=== PATIENT | female | born 1975 | race Caucasian/White ===

== ENCOUNTER 2016-10-13 14:13 | Emergency (ER) | payer OTHER ==
--- NOTE | 2016-10-13 17:30 | DIAGNOSTIC IMAGING REPORT ---
PROCEDURE: ABDOMEN/PELVIS WITH CONTRAST CLINICAL INDICATION: ABDOMINAL PAIN TECHNIQUE: 125 ml of Isovue 300 were injected intravenously and axial images were obtained of the abdomen and pelvis with sagittal and coronal reformations. COMPARISON: None. FINDINGS: ABDOMEN: Surgically absent gallbladder. Elongated right lobe of the liver. Mild biliary dilatation, secondary post cholecystectomy. There is a drop clip dorsal to the right lobe of the liver. There is mild enlargement of the right kidney and a moderately dilated nephrogram. Mild hydronephrosis. There are nonobstructing intrarenal calcifications, one in the middle tammy measuring 2.5 mm and one in the lower pole measuring 4 mm. No significant perinephric inflammation. Moderate hydroureter and urothelial enhancement. Within the distal ureter, there are two calculi, one measuring 1.8 mm and the other measuring about 4 mm which are likely obstructive. The left kidney demonstrates appropriate enhancement and excretion of IV contrast. The adrenal glands, spleen, pancreas, and retroperitoneal vessels are otherwise normal. The splenic vein is engorged and tortuous. The stomach, bowel loops, and mesentery are normal. PELVIS: A normal appendix lies transversely above the urinary bladder. Mildly increased amount of stool. Pelvic small bowel loops are normal. Decompressed urinary bladder without calcification. 3.1 cm dominant follicle associated with the right ovary. Multiple normal follicles on the left ovary. Normal uterus. No adenopathy. IMPRESSION: 1. Obstructing right distal ureteral calcifications measuring 4 mm and 1.8 mm. 2. Normal appendix. 3. Post cholecystectomy. 4. Nonobstructing right intrarenal calculi. 5. Discussed with Dr. Reid in the emergency room. All CT scans at this facility use dose modulation, iterative reconstruction, and/or weight-based dosing when appropriate to reduce radiation dose to as low as reasonably achievable.
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
--- NOTE | 2016-10-13 17:34 | ED ORDER SUMMARY ---
..... Patient: WANDY DOUGHERTY OrderSheet [facility] VisitID: [id number] [place] [address] 40y, F Registration Date/Time: 10/13/2016 ORDER SHEET Weight: 79.3 kg (stated) Allergies: Naproxen, Sudafed GENERAL ORDERS: UA-Culture if indicated Urgent (14:28 10/13/2016 JBoardley R.N. per protocol) (Ack 14:31 Derrell) (14:32 JBoardley R.N.) Urine Urgent (14:28 10/13/2016 JBoardley R.N. per protocol) (Ack 14:31 Derrell) (14:32 JBoardley R.N.) CBC w Diff Urgent (15:11 10/13/2016 Luis Manuel FARRELL) (Ack 15:17 AMcQuoid ER Tech1) (15:35 JBoardley R.N.) CMP Urgent (15:11 10/13/2016 Luis Manuel FARRELL) (Ack 15:17 AMcQuoid ER Tech1) (15:35 JBoardley R.N.) Amylase Urgent (15:11 10/13/2016 Luis Manuel FARRELL) (Ack 15:17 AMcQuoid ER Tech1) (15:35 JBoardley R.N.) Lipase Urgent (15:11 10/13/2016 Luis Manuel FARRELL) (Ack 15:17 AMcQuoid ER Tech1) (15:35 JBoardley R.N.) GC/Chlamydia (Cervix) (cervix) Urgent (15:14 10/13/2016 Luis Manuel FARRELL) (Ack 15:16 AMcQuoid ER Tech1) (16:12 JBoardley R.N.) Wet Prep (Cervix) (cervix) Urgent (15:14 10/13/2016 Luis Manuel FARRELL) (Ack 15:16 AMcQuoid ER Tech1) (16:12 JBoardley R.N.) Pelvic Exam Setup (15:15 10/13/2016 Luis Manuel FARRELL) (16:04 AMcQuoid ER Tech1) CT Abd/Pel w Cont (No) (See report) Urgent (16:02 10/13/2016 Luis Manuel FARRELL) (Ack 16:04 AMcQuoid ER Tech1) (16:55 JBoardley R.N.) MEDICATION ORDERS: Zofran ODT PO 4 mg (NOW) (14:28 10/13/2016 JBoarangelia R.N. per protocol) (Ack 14:28 JBoardley R.N.) (14:32 JBoardley R.N.) Flomax PO 0.4 mg (Do not crush or chew, NOW) (17:29 10/13/2016 Luis Manuel FARRELL) (Ack 17:36 JBoardley R.N.) (17:48 JBoardley R.N.) IV FLUIDS: IV NS : initial bolus 500 mL (1000 mL/hr), then 125 mL/hr for 4h (NOW); Urgent (15:11 10/13/2016 Luis Manuel FARRELL) (Ack 15:14 JBoardley R.N.) (15:36 JBoardley R.N.) ORDER SHEET NOTES: [Electronically signed by Erwin Gill R.N. (17:54 10/13/2016)] [Electronically signed by Nithin Reid MD (21:19 10/14/2016)] [Electronically locked/signed by Erwin Gill R.N. (17:54 10/13/2016)]
--- NOTE | 2016-10-13 17:34 | ED ORDER SUMMARY ---
..... Patient: WANDY DOUGHERTY OrderSheet [facility] VisitID: [id number] [place] [address] 40y, F Registration Date/Time: 10/13/2016 ORDER SHEET Weight: 79.3 kg (stated) Allergies: Naproxen, Sudafed GENERAL ORDERS: UA-Culture if indicated Urgent (14:28 10/13/2016 JBoardley R.N. per protocol) (Ack 14:31 Derrell) (14:32 JBoardley R.N.) Urine Urgent (14:28 10/13/2016 JBoardley R.N. per protocol) (Ack 14:31 Derrell) (14:32 JBoardley R.N.) CBC w Diff Urgent (15:11 10/13/2016 Luis Manuel FARRELL) (Ack 15:17 AMcQuoid ER Tech1) (15:35 JBoardley R.N.) CMP Urgent (15:11 10/13/2016 Luis Manuel FARRELL) (Ack 15:17 AMcQuoid ER Tech1) (15:35 JBoardley R.N.) Amylase Urgent (15:11 10/13/2016 Luis Manuel FARRELL) (Ack 15:17 AMcQuoid ER Tech1) (15:35 JBoardley R.N.) Lipase Urgent (15:11 10/13/2016 Luis Manuel FARRELL) (Ack 15:17 AMcQuoid ER Tech1) (15:35 JBoardley R.N.) GC/Chlamydia (Cervix) (cervix) Urgent (15:14 10/13/2016 Luis Manuel FARRELL) (Ack 15:16 AMcQuoid ER Tech1) (16:12 JBoardley R.N.) Wet Prep (Cervix) (cervix) Urgent (15:14 10/13/2016 Luis Manuel FARRELL) (Ack 15:16 AMcQuoid ER Tech1) (16:12 JBoardley R.N.) Pelvic Exam Setup (15:15 10/13/2016 Luis Manuel FARRELL) (16:04 AMcQuoid ER Tech1) CT Abd/Pel w Cont (No) (See report) Urgent (16:02 10/13/2016 Luis Manuel FARRELL) (Ack 16:04 AMcQuoid ER Tech1) (16:55 JBoardley R.N.) MEDICATION ORDERS: Zofran ODT PO 4 mg (NOW) (14:28 10/13/2016 JBoarangelia R.N. per protocol) (Ack 14:28 JBoardley R.N.) (14:32 JBoardley R.N.) Flomax PO 0.4 mg (Do not crush or chew, NOW) (17:29 10/13/2016 Luis Manuel FARRELL) (Ack 17:36 JBoardley R.N.) (17:48 JBoardley R.N.) IV FLUIDS: IV NS : initial bolus 500 mL (1000 mL/hr), then 125 mL/hr for 4h (NOW); Urgent (15:11 10/13/2016 Luis Manuel FARRELL) (Ack 15:14 JBoardley R.N.) (15:36 JBoardley R.N.) ORDER SHEET NOTES: [Electronically signed by Erwin Gill R.N. (17:54 10/13/2016)] [Electronically signed by Nithin Reid MD (21:19 10/14/2016)] [Electronically locked/signed by Erwin Gill R.N. (17:54 10/13/2016)]
--- NOTE | 2016-10-14 21:19 | ED MAR SUMMARY ---
..... Medication Administration Record [facility] [address] [address] Patient: WANDY DOUGHERTY Visit ID: [id number] 40y, F Weight: 79.3 kg Height/Length: 66 in BMI: 28.2 ALLERGIES: Naproxen, Sudafed Given 14:32 10/13/2016 Erwin Gill R.N. Medication Administered: ZOFRAN ODT [PO] (ONDANSETRON), Dose: 4 mg PO. Medication Ordered: Zofran ODT PO 4 mg (NOW). Start 15:36 10/13/2016 Erwin Gill R.N., Stop 17:44 10/13/2016 Erwin Gill R.N. Medication Administered: IV NS (SALINE), Dose: IV Fluids over 1 hour(s), Rate: 1000 mL/hr, Dispensed: 1000 mL bag, Site: #1 right AC. Medication Ordered: IV NS : initial bolus 500 mL (1000 mL/hr), then 125 mL/hr for 4h (NOW); Urgent. Given 17:38 10/13/2016 Erwin Gill R.N. Medication Administered: FLOMAX [PO] (TAMSULOSIN HCL), Dose: 0.4 mg PO. Medication Ordered: Flomax PO 0.4 mg (Do not crush or chew, NOW).
--- NOTE | 2016-10-14 21:19 | ED MED RECONCILIATION SUMMARY ---
Patient: WANDY DOUGHERTY Medication Reconciliation Report [facility] VisitID: [id number] [address] [place] [address] 40y, F Registration Date/Time: 10/13/2016 Weight: 79.3 kg Height/Length: 66 in. BMI: 28.2 ALLERGIES: Naproxen, Sudafed The patient's Home Medications are listed below: THE FOLLOWING MEDICATIONS NEED TO BE RECONCILED: Excedrin Migraine Oral Lorazepam Oral 1 mg, for panic attacks The source(s) of the original Home Medication information: patient The following Medications were given to the patient in the Emergency Department: Zofran ODT [PO] PO 4 mg, administered: 10/13/2016 2:32:00 PM IV NS IV Fluids bolus 0, then 1000 mL/hr, administered: 10/13/2016 3:36:00 PM Flomax [PO] PO 0.4 mg, administered: 10/13/2016 5:38:00 PM The following Medications were prescribed to the patient: Hydrocodone/APAP 5mg/325mg: take 1 to 2 orally every 6 hours as needed for pain. Dispense fifteen (15). No refills. -- Nithin Reid MD Zofran 4 mg: Take 1 orally every six hours as needed for nausea/vomiting. Dispense ten (10). No refills. Substitution is permissible. -- Nithin Reid MD Flomax 0.4 mg: take 1 orally every 24 hours. Dispense five (5). No refills. Substitution is permissible. -- Nithin eRid MD
--- NOTE | 2016-10-14 21:19 | ED MED RECONCILIATION SUMMARY ---
Patient: WANDY DOUGHERTY Medication Reconciliation Report [facility] VisitID: [id number] [address] [place] [address] 40y, F Registration Date/Time: 10/13/2016 Weight: 79.3 kg Height/Length: 66 in. BMI: 28.2 ALLERGIES: Naproxen, Sudafed The patient's Home Medications are listed below: THE FOLLOWING MEDICATIONS NEED TO BE RECONCILED: Excedrin Migraine Oral Lorazepam Oral 1 mg, for panic attacks The source(s) of the original Home Medication information: patient The following Medications were given to the patient in the Emergency Department: Zofran ODT [PO] PO 4 mg, administered: 10/13/2016 2:32:00 PM IV NS IV Fluids bolus 0, then 1000 mL/hr, administered: 10/13/2016 3:36:00 PM Flomax [PO] PO 0.4 mg, administered: 10/13/2016 5:38:00 PM The following Medications were prescribed to the patient: Hydrocodone/APAP 5mg/325mg: take 1 to 2 orally every 6 hours as needed for pain. Dispense fifteen (15). No refills. -- Nithin Reid MD Zofran 4 mg: Take 1 orally every six hours as needed for nausea/vomiting. Dispense ten (10). No refills. Substitution is permissible. -- Nithin Reid MD Flomax 0.4 mg: take 1 orally every 24 hours. Dispense five (5). No refills. Substitution is permissible. -- Nithin Reid MD
--- NOTE | 2016-10-14 21:19 | ED MAR SUMMARY ---
..... Medication Administration Record [facility] [address] [place] [address] Patient: WANDY DOUGHERTY Visit ID: [id number] 40y, F Weight: 79.3 kg Height/Length: 66 in BMI: 28.2 ALLERGIES: Naproxen, Sudafed Given 14:32 10/13/2016 Erwin Gill R.N. Medication Administered: ZOFRAN ODT [PO] (ONDANSETRON), Dose: 4 mg PO. Medication Ordered: Zofran ODT PO 4 mg (NOW). Start 15:36 10/13/2016 Erwin Gill R.N., Stop 17:44 10/13/2016 Erwin Gill R.N. Medication Administered: IV NS (SALINE), Dose: IV Fluids over 1 hour(s), Rate: 1000 mL/hr, Dispensed: 1000 mL bag, Site: #1 right AC. Medication Ordered: IV NS : initial bolus 500 mL (1000 mL/hr), then 125 mL/hr for 4h (NOW); Urgent. Given 17:38 10/13/2016 Erwin Gill R.N. Medication Administered: FLOMAX [PO] (TAMSULOSIN HCL), Dose: 0.4 mg PO. Medication Ordered: Flomax PO 0.4 mg (Do not crush or chew, NOW).
--- NOTE | 2016-10-14 21:19 | ED DISCHARGE INSTRUCTIONS ---
Patient: WANDY DOUGHERTY General Instructions [facility] VisitID: [id number] [address] [place] [address] 40y, F Registration Date/Time: 10/13/2016 Right renal colic in the right ureter and kidney with multiple calculi. INSTRUCTIONS No driving or operating machinery while taking medication. Drink plenty of fluids. Warnings: Further evaluation is necessary. GENERAL WARNINGS: Return or contact your physician immediately if your condition worsens or changes unexpectedly, if not improving as expected, or if other problems arise. Prescription Medications: Hydrocodone/APAP 5mg/325mg: take 1 to 2 orally every 6 hours as needed for pain. Dispense fifteen (15). No refills. Zofran 4 mg: Take 1 orally every six hours as needed for nausea/vomiting. Dispense ten (10). No refills. Substitution is permissible. Flomax 0.4 mg: take 1 orally every 24 hours. Dispense five (5). No refills. Substitution is permissible. Follow-up: Follow up with your doctor ANNELIESE BOSS tomorrow. Call for the next available appointment. Follow up with a urologist- as recommended by your primary care physician. Understanding of the discharge instructions verbalized by patient. ADDITIONAL INFORMATION Kidney Stone (W/ Colic) The sharp cramping pain and nausea/vomiting that you have is due to a small stone which has formed in the kidney and is now passing down a narrow tube (ureter) on its way to your bladder. Once it reaches your bladder, the pain will stop. The stone may pass in your urine stream in one piece. [The size may be 1/16" to 1/4" (1-6mm)]. Or, the stone may also break up into tatiana fragments which you may not even notice. Once you have had a kidney stone, you are at risk for developing another one in the future. Home Care: Drink plenty of fluids (at least 8 to 10 glasses of water a day). Most stones will pass on their own, but may take from a few hours to a few days. Sometimes the stone is too large to pass by itself and special methods will have to be used to remove the stone. Each time you urinate, do so in a jar. Pour the urine from the jar through the strainer and into the toilet. Continue doing this until 24 hours after your pain stops. By then, if there was a kidney stone, it should pass from your bladder. Some stones dissolve into sand-like particles and pass right through the strainer. In that case, you wont ever see a stone. Save any stone that you find in the strainer and bring it to your doctor for analysis. It may be possible to prevent certain types of stones from forming. Therefore, it is important to know what kind of stone you have. Try to stay as active as possible since this will help the stone pass. Do not stay in bed unless your pain prevents you from getting up. You may notice a red, pink or brown color to your urine. This is normal while passing a kidney stone. Follow Up with your doctor or return to this facility if the pain lasts more than 48 hours. Get Prompt Medical Attention if any of the following occur: Pain that is not controlled by the medicine given Repeated vomiting or unable to keep down fluids Weakness, dizziness or fainting Fever of 100.4F (38C) or higher, or as directed by your healthcare provider Passage of solid red or brown urine (can't see through it) or urine with lots of blood clots Unable to pass urine for 8 hours and increasing bladder pressure Hydrocodone Bitartrate, Acetaminophen Oral tablet What is this medicine? ACETAMINOPHEN; HYDROCODONE (a set a AUDREY noemi fen; cindy droe KOE done) is a pain reliever. It is used to treat mild to moderate pain. How should I use this medicine? Take this medicine by mouth. Swallow it with a full glass of water. Follow the directions on the prescription label. If the medicine upsets your stomach, take the medicine with food or milk. Do not take more than you are told to take. Talk to your medicine teacher regarding the use of this medicine in children. This medicine is not approved for use in children. What side effects may I notice from receiving this medicine? Side effects that you should report to your doctor or health intensive care medicine specialist as soon as possible: allergic reactions like skin rash, itching or hives, swelling of the face, lips, or tongue breathing problems confusion feeling faint or lightheaded, falls stomach pain yellowing of the eyes or skin Side effects that usually do not require medical attention (report to your doctor or health intensive care medicine specialist if they continue or are bothersome): nausea, vomiting stomach upset What may interact with this medicine? alcohol antihistamines isoniazid medicines for depression, anxiety, or psychotic disturbances medicines for sleep muscle relaxants naltrexone narcotic medicines (opiates) for pain phenobarbital ritonavir tramadol What if I miss a dose? If you miss a dose, take it as soon as you can. If it is almost time for your next dose, take only that dose. Do not take double or extra doses. Where should I keep my medicine? Keep out of the reach of children. This medicine can be abused. Keep your medicine in a safe place to protect it from theft. Do not share this medicine with anyone. Selling or giving away this medicine is dangerous and against the law. Store at room temperature between 15 and 30 degrees C (59 and 86 degrees F). Protect from light. Keep container tightly closed. Throw away any unused medicine after the expiration date. Discard unused medicine and used packaging carefully. Pets and children can be harmed if they find used or lost packages. What should I tell my health care provider before I take this medicine? They need to know if you have any of these conditions: brain tumor Crohn's disease, inflammatory bowel disease, or ulcerative colitis drink more than 3 alcohol-containing drinks per day drug abuse or addiction head injury heart or circulation problems kidney disease or problems going to the bathroom liver disease lung disease, asthma, or breathing problems an unusual or allergic reaction to acetaminophen, hydrocodone, other opioid analgesics, other medicines, foods, dyes, or preservatives or trying to get breast-feeding What should I watch for while using this medicine? Tell your doctor or health intensive care medicine specialist if your pain does not go away, if it gets worse, or if you have new or a different type of pain. You may develop tolerance to the medicine. Tolerance means that you will need a higher dose of the medicine for pain relief. Tolerance is normal and is expected if you take the medicine for a long time. Do not suddenly stop taking your medicine because you may develop a severe reaction. Your body becomes used to the medicine. This does NOT mean you are addicted. Addiction is a behavior related to getting and using a drug for a non-medical reason. If you have pain, you have a medical reason to take pain medicine. Your doctor will tell you how much medicine to take. If your doctor wants you to stop the medicine, the dose will be slowly lowered over time to avoid any side effects. You may get drowsy or dizzy when you first start taking the medicine or change doses. Do not drive, use machinery, or do anything that may be dangerous until you know how the medicine affects you. Stand or sit up slowly. There are different types of narcotic medicines (opiates) for pain. If you take more than one type at the same time, you may have more side effects. Give your health care provider a list of all medicines you use. Your doctor will tell you how much medicine to take. Do not take more medicine than directed. Call emergency for help if you have problems breathing. The medicine will cause constipation. Try to have a bowel movement at least every 2 to 3 days. If you do not have a bowel movement for 3 days, call your doctor or health intensive care medicine specialist. Too much acetaminophen can be very dangerous. Do not take Tylenol (acetaminophen) or medicines that contain acetaminophen with this medicine. Many non-prescription medicines contain acetaminophen. Always read the labels carefully. Ondansetron Oral disintegrating tablet What is this medicine? ONDANSETRON (on GALLITO se seun) is used to treat nausea and vomiting caused by chemotherapy. It is also used to prevent or treat nausea and vomiting after surgery. How should I use this medicine? These tablets are made to dissolve in the mouth. Do not try to push the tablet through the foil backing. With dry hands, peel away the foil backing and gently remove the tablet. Place the tablet in the mouth and allow it to dissolve, then swallow. While you may take these tablets with water, it is not necessary to do so. Talk to your medicine teacher regarding the use of this medicine in children. Special care may be needed. What side effects may I notice from receiving this medicine? Side effects that you should report to your doctor or health intensive care medicine specialist as soon as possible: allergic reactions like skin rash, itching or hives, swelling of the face, lips, or tongue breathing problems dizziness fast or irregular heartbeat feeling faint or lightheaded, falls fever and chills swelling of the hands and feet tightness in the chest Side effects that usually do not require medical attention (report to your doctor or health intensive care medicine specialist if they continue or are bothersome): constipation or diarrhea headache What may interact with this medicine? Do not take this medicine with any of the following medications: -apomorphine -cisapride -dofetilide -dronedarone -pimozide -thioridazine -ziprasidone This medicine may also interact with the following medications: -carbamazepine -phenytoin -rifampicin -tramadol -other medicines that prolong the QT interval (cause an abnormal heart rhythm) What if I miss a dose? If you miss a dose, take it as soon as you can. If it is almost time for your next dose, take only that dose. Do not take double or extra doses. Where should I keep my medicine? Keep out of the reach of children. Store between 2 and 30 degrees C (36 and 86 degrees F). Throw away any unused medicine after the expiration date. What should I tell my health care provider before I take this medicine? They need to know if you have any of these conditions: heart disease history of irregular heartbeat liver disease low levels of magnesium or potassium in the blood an unusual or allergic reaction to ondansetron, granisetron, other medicines, foods, dyes, or preservatives or trying to get breast-feeding What should I watch for while using this medicine? Check with your doctor or health intensive care medicine specialist as soon as you can if you have any sign of an allergic reaction. You have been given the following additional information: Kidney Stone W/ Colic Hydrocodone Bitartrate, Acetaminophen Oral tablet Ondansetron Oral disintegrating tablet No driving or operating machinery while taking medication. (Electronically signed by Nithin Reid MD 10/14/2016 21:19)
== END 2016-10-13 17:52 | disposition home or self-care (01) ==
LOC: ED SRH 14:13
DX: N20.2 Calculus of kidney with calculus of ureter (principal); Z88.8 Allergy status to other drugs, medicaments and biological substances; Z88.6 Allergy status to analgesic agent
CPT/HCPCS: 90004; 90100; 90195; 91227; 91228; 92235; 92530; 93070; 95059

== ENCOUNTER 2016-10-14 11:16 | Emergency (ER) | payer OTHER ==
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
--- NOTE | 2016-10-14 16:34 | ED ORDER SUMMARY ---
..... Patient: WANDY DOUGHERTY OrderSheet [facility] VisitID: [id number] [address] [place], [place] [id number] 40y, F Registration Date/Time: 10/14/2016 ORDER SHEET Weight: 79.3 kg (stated) Allergies: Naproxen, Sudafed GENERAL ORDERS: CBC w Diff Urgent (11:47 10/14/2016 Sanya Fuller) (Ack 11:49 Vero) (12:03 SReitz R.N.) CMP Urgent (11:47 10/14/2016 Sanya Fuller) (Ack 11:49 Vero) (12:03 SReitz R.N.) UA-Culture if indicated Urgent (11:47 10/14/2016 Sanya Fuller) (Ack 11:49 Vero) (Sent 13:03 Sanya Fuller) (13:04 LNations ER Tech1) Urine Urgent (11:47 10/14/2016 Sanya Fuller) (Ack 11:49 Vero) (Sent 13:03 Sanya Fuller) (13:04 LNations ER Tech1) Amylase Urgent (11:47 10/14/2016 Sanya Fuller) (Ack 11:49 Vero) (12:03 SReitz R.N.) Lipase Urgent (11:47 10/14/2016 Sanya Fuller) (Ack 11:49 Vero) (12:03 SReitz R.N.) MEDICATION ORDERS: IV FLUIDS: IV NS : initial bolus none -, then 1000 mL/hr for X1 (NOW) (11:46 10/14/2016 Sanya Fuller) (Ack 11:48 SReitz R.N.) (12:04 SReitz R.N.) Reglan IV 10 mg (NOW) (11:47 10/14/2016 Sanya Fuller) (Ack 11:48 SReitz R.N.) (12:04 SReitz R.N.) Morphine IV 4 mg (HIGH ALERT MEDICATION, NOW) (13:03 10/14/2016 Sanya Fuller) (Ack 13:21 SReitz R.N.) (13:47 SReitz R.N.) Zofran IV 4 mg (NOW) (13:04 10/14/2016 Sanya Fuller) (Ack 13:21 Ricardo Olsen.NWanda) (13:46 Ricardo Olsen.Ann) Zofran IV 4 mg (NOW) (15:23 10/14/2016 Sanya Fuller) (15:29 Linda Harrison) ORDER SHEET NOTES: [Electronically signed by Arya Shaw Dr. (16:37 10/14/2016)] [Electronically signed by An Gutierrez R.N. (10:55 10/21/2016)] [Electronically locked/signed by An Gutierrez R.N. (10:55 10/21/2016)]
--- NOTE | 2016-10-14 16:34 | ED ORDER SUMMARY ---
..... Patient: WANDY DOUGHERTY OrderSheet [facility] VisitID: [id number] [address] [place], [place] [id number] 40y, F Registration Date/Time: 10/14/2016 ORDER SHEET Weight: 79.3 kg (stated) Allergies: Naproxen, Sudafed GENERAL ORDERS: CBC w Diff Urgent (11:47 10/14/2016 Sanya Fuller) (Ack 11:49 Vero) (12:03 SReitz R.N.) CMP Urgent (11:47 10/14/2016 Sanya Fuller) (Ack 11:49 Vero) (12:03 SReitz R.N.) UA-Culture if indicated Urgent (11:47 10/14/2016 Sanya Fuller) (Ack 11:49 Vero) (Sent 13:03 Sanya Fuller) (13:04 LNations ER Tech1) Urine Urgent (11:47 10/14/2016 Sanya Fuller) (Ack 11:49 Vero) (Sent 13:03 Sanya Fuller) (13:04 LNations ER Tech1) Amylase Urgent (11:47 10/14/2016 Sanya Fuller) (Ack 11:49 Vero) (12:03 SReitz R.N.) Lipase Urgent (11:47 10/14/2016 Sanya Fuller) (Ack 11:49 Vero) (12:03 SReitz R.N.) MEDICATION ORDERS: IV FLUIDS: IV NS : initial bolus none -, then 1000 mL/hr for X1 (NOW) (11:46 10/14/2016 Sanya Fuller) (Ack 11:48 SReitz R.N.) (12:04 SReitz R.N.) Reglan IV 10 mg (NOW) (11:47 10/14/2016 Sanya Fuller) (Ack 11:48 SReitz R.N.) (12:04 SReitz R.N.) Morphine IV 4 mg (HIGH ALERT MEDICATION, NOW) (13:03 10/14/2016 Sanya Fuller) (Ack 13:21 SReitz R.N.) (13:47 SReitz R.N.) Zofran IV 4 mg (NOW) (13:04 10/14/2016 Sanya Fuller) (Ack 13:21 Ricardo Olsen.NWanda) (13:46 Ricardo Olsen.Ann) Zofran IV 4 mg (NOW) (15:23 10/14/2016 Sanya Fuller) (15:29 Linda Harrison) ORDER SHEET NOTES: [Electronically signed by Arya Shaw Dr. (16:37 10/14/2016)] [Electronically signed by An Gutierrez R.N. (10:55 10/21/2016)] [Electronically locked/signed by An Gutierrez R.N. (10:55 10/21/2016)]
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
--- NOTE | 2016-10-21 10:55 | ED MAR SUMMARY ---
..... Medication Administration Record [facility] [address] [place] [address] Patient: WANDY DOUGHERTY Visit ID: [id number] 40y, F Weight: 79.3 kg Height/Length: 66 in BMI: 28.2 ALLERGIES: Naproxen, Sudafed Start 12:01 10/14/2016 Maame Tam R.N., Stop 13:00 10/14/2016 Maame Tam R.N. Medication Administered: IV NS (SALINE), Dose: IV Fluids over 1 hour(s), Rate: 1000 mL/hr, Dispensed: 1000 mL bag, Site: #1 left AC. Medication Ordered: IV NS : initial bolus none -, then 1000 mL/hr for X1 (NOW). Given 12:03 10/14/2016 Maame Tam R.N. Medication Administered: REGLAN [IVP] (METOCLOPRAMIDE HCL), Dose: 10 mg IVP over 3 minute(s), Site: #1 left AC. Medication Ordered: Reglan IV 10 mg (NOW). Given 13:43 10/14/2016 Maame Tam R.N. Medication Administered: ZOFRAN [IVP] (ONDANSETRON HCL), Dose: 4 mg IVP over 1 minute(s), Site: #1 left AC. Medication Ordered: Zofran IV 4 mg (NOW). Given 13:44 10/14/2016 Maame Tam R.N. Medication Administered: MORPHINE [IVP], Dose: 4 mg IVP over 2 minute(s), Site: #1 left AC. Medication Ordered: Morphine IV 4 mg (HIGH ALERT MEDICATION, NOW). Given 15:24 10/14/2016 An Gutierrez R.N. Medication Administered: ZOFRAN [IVP] (ONDANSETRON HCL), Dose: 4 mg IVP over 2 minute(s), Site: #1 left AC. Medication Ordered: Zofran IV 4 mg (NOW).
--- NOTE | 2016-10-21 10:55 | ED MED RECONCILIATION SUMMARY ---
Patient: WANDY DOUGHERTY Medication Reconciliation Report [facility] VisitID: [id number] [address] [place] [address] 40y, F Registration Date/Time: 10/14/2016 Weight: 79.3 kg Height/Length: 66 in. BMI: 28.2 ALLERGIES: Naproxen, Sudafed The patient's Home Medications are listed below: CONTINUE TAKING THE FOLLOWING MEDICATIONS: Excedrin Migraine Oral Lorazepam Oral 1 mg, for panic attacks Vicodin Oral The source(s) of the original Home Medication information: Not obtained. The following Medications were given to the patient in the Emergency Department: IV NS IV Fluids bolus 0, then 1000 mL/hr, administered: 10/14/2016 12:01:00 PM Reglan [IVP] IVP 10 mg, administered: 10/14/2016 12:03:00 PM Zofran [IVP] IVP 4 mg, administered: 10/14/2016 1:43:00 PM Morphine [IVP] IVP 4 mg, administered: 10/14/2016 1:44:00 PM Zofran [IVP] IVP 4 mg, administered: 10/14/2016 3:24:00 PM The following Medications were prescribed to the patient: Reglan 10 mg tablets: take 1 orally every 6 hours as needed for nausea or vomiting. Dispense twenty (20). No refills. Substitution is permissible. -- Arya Shaw Dr. Baclofen 10 mg: take 1 orally every 8 hours. Dispense twenty (20). No refills. -- Arya Shaw Dr.
--- NOTE | 2016-10-21 10:55 | ED DISCHARGE INSTRUCTIONS ---
Patient: WANDY DOUGHERTY General Instructions [facility] VisitID: [id number] [address] [place] [address] 40y, F Registration Date/Time: 10/14/2016 Episodic tension-type headache poorly controlled. INSTRUCTIONS Your Current Medications: CONTINUE TAKING THE FOLLOWING MEDICATIONS: Excedrin Migraine Oral. Lorazepam Oral : 1 mg, prn, for panic attacks. Vicodin Oral : prn. Prescription Medications: Reglan 10 mg tablets: take 1 orally every 6 hours as needed for nausea or vomiting. Dispense twenty (20). No refills. Substitution is permissible. Baclofen 10 mg: take 1 orally every 8 hours. Dispense twenty (20). No refills. Follow-up: Follow up with your doctor in about two days. Call for an appointment. Screening today revealed the patient's blood pressure to be in the pre-hypertensive range. The patient should follow up with a primary care provider for blood pressure management. ADDITIONAL INFORMATION Tension Headache Muscle Tension Headache (also called "stress headache") is a very common cause of head pain. Under stress, some people tense the muscles of their shoulder, neck and scalp without knowing it. If this lasts long enough, a headache can occur. These headaches can be very painful and last for hours or even days. Home Care: If you were given pain medicine for this headache, do not drive yourself home. Arrange for a ride, instead. When you get home, try to sleep. You should feel much better when you wake up. Heat to the back of your neck may relieve neck spasm. Drink only clear liquids or eat a very light diet to avoid nausea/vomiting until symptoms improve. Preventing Future Headaches Identify the sources of stress in your life. These may not be obvious! Learn new ways to handle your stress, such as regular exercise, biofeedback, self-hypnosis and meditation. For more information about this, consult your doctor or go to a local bookstore and review the many books and tapes on this subject. At the first sign of a tension headache, take time out if possible. Remove yourself from the stressful situation, find a quiet comfortable place to sit or lie down and let yourself relax. Heat and deep massage of the tight areas in the neck and shoulders may help reduce muscle spasm. Medicine, such as ibuprofen (Advil or Motrin) or a prescribed muscle relaxant may be helpful at this point. Follow Up with your doctor if the headache is not better within the next 24 hours. If you have frequent headaches you should discuss a treatment plan with your primary care doctor. Ask if you can have medicine to take at home the next time you get a bad headache. This may avoid the need for a visit to the emergency department in the future. Poorly controlled chronic headaches may require a referral to a neurologist (headache specialist). Get Prompt Medical Attention if any of the following occur: Worsening of your head pain or no improvement within 24 hours Repeated vomiting (unable to keep liquids down) Fever of 100.4F (38C) or higher, or as directed by your healthcare provider Stiff neck Extreme drowsiness, confusion or fainting Dizziness, vertigo (dizziness with spinning sensation) Weakness of an arm or leg or one side of the face Difficulty with speech or vision Metoclopramide Hydrochloride Oral tablet What is this medicine? METOCLOPRAMIDE (met oh kloe PRA mide) is used to treat the symptoms of gastroesophageal reflux disease (GERD) like heartburn. It is also used to treat people with slow emptying of the stomach and intestinal tract. How should I use this medicine? Take this medicine by mouth with a glass of water. Follow the directions on the prescription label. Take this medicine on an empty stomach, about 30 minutes before eating. Take your doses at regular intervals. Do not take your medicine more often than directed. Do not stop taking except on the advice of your doctor or health career information specialist. A special MedGuide will be given to you by the pharmacist with each prescription and refill. Be sure to read this information carefully each time. Talk to your fire control technician regarding the use of this medicine in children. Special care may be needed. What side effects may I notice from receiving this medicine? Side effects that you should report to your doctor or health career information specialist as soon as possible: allergic reactions like skin rash, itching or hives, swelling of the face, lips, or tongue abnormal production of milk in females breast enlargement in both males and females change in the way you walk difficulty moving, speaking or swallowing drooling, lip smacking, or rapid movements of the tongue excessive sweating fever involuntary or uncontrollable movements of the eyes, head, arms and legs irregular heartbeat or palpitations muscle twitches and spasms unusually weak or tired Side effects that usually do not require medical attention (report to your doctor or health career information specialist if they continue or are bothersome): change in sex drive or performance depressed mood diarrhea difficulty sleeping headache menstrual changes restless or nervous What may interact with this medicine? acetaminophen cyclosporine digoxin medicines for blood pressure medicines for diabetes, including insulin medicines for hay fever and other allergies medicines for depression, especially an Monoamine Oxidase Inhibitor (MAOI) medicines for Parkinson's disease, like levodopa medicines for sleep or for pain tetracycline What if I miss a dose? If you miss a dose, take it as soon as you can. If it is almost time for your next dose, take only that dose. Do not take double or extra doses. Where should I keep my medicine? Keep out of the reach of children. Store at room temperature between 20 and 25 degrees C (68 and 77 degrees F). Protect from light. Keep container tightly closed. Throw away any unused medicine after the expiration date. What should I tell my health care provider before I take this medicine? They need to know if you have any of these conditions: breast cancer depression diabetes heart failure high blood pressure kidney disease liver disease Parkinson's disease or a movement disorder pheochromocytoma seizures stomach obstruction, bleeding, or perforation an unusual or allergic reaction to metoclopramide, procainamide, sulfites, other medicines, foods, dyes, or preservatives or trying to get breast-feeding What should I watch for while using this medicine? It may take a few weeks for your stomach condition to start to get better. However, do not take this medicine for longer than 12 weeks. The longer you take this medicine, and the more you take it, the greater your chances are of developing serious side effects. If you are an elderly patient, a female patient, or you have diabetes, you may be at an increased risk for side effects from this medicine. Contact your doctor immediately if you start having movements you cannot control such as lip smacking, rapid movements of the tongue, involuntary or uncontrollable movements of the eyes, head, arms and legs, or muscle twitches and spasms. Patients and their families should watch out for worsening depression or thoughts of suicide. Also watch out for any sudden or severe changes in feelings such as feeling anxious, agitated, panicky, irritable, hostile, aggressive, impulsive, severely restless, overly excited and hyperactive, or not being able to sleep. If this happens, especially at the beginning of treatment or after a change in dose, call your doctor. Do not treat yourself for high fever. Ask your doctor or health career information specialist for advice. You may get drowsy or dizzy. Do not drive, use machinery, or do anything that needs mental alertness until you know how this drug affects you. Do not stand or sit up quickly, especially if you are an older patient. This reduces the risk of dizzy or fainting spells. Alcohol can make you more drowsy and dizzy. Avoid alcoholic drinks. You have been given the following additional information: Headache, Tension Metoclopramide Hydrochloride Oral tablet (Electronically signed by Arya Shaw Dr. 10/14/2016 16:37)
--- NOTE | 2016-10-21 10:55 | ED DISCHARGE INSTRUCTIONS ---
Patient: WANDY DOUGHERTY General Instructions [facility] VisitID: [id number] [address] [place] [address] 40y, F Registration Date/Time: 10/14/2016 Episodic tension-type headache poorly controlled. INSTRUCTIONS Your Current Medications: CONTINUE TAKING THE FOLLOWING MEDICATIONS: Excedrin Migraine Oral. Lorazepam Oral : 1 mg, prn, for panic attacks. Vicodin Oral : prn. Prescription Medications: Reglan 10 mg tablets: take 1 orally every 6 hours as needed for nausea or vomiting. Dispense twenty (20). No refills. Substitution is permissible. Baclofen 10 mg: take 1 orally every 8 hours. Dispense twenty (20). No refills. Follow-up: Follow up with your doctor in about two days. Call for an appointment. Screening today revealed the patient's blood pressure to be in the pre-hypertensive range. The patient should follow up with a primary care provider for blood pressure management. ADDITIONAL INFORMATION Tension Headache Muscle Tension Headache (also called "stress headache") is a very common cause of head pain. Under stress, some people tense the muscles of their shoulder, neck and scalp without knowing it. If this lasts long enough, a headache can occur. These headaches can be very painful and last for hours or even days. Home Care: If you were given pain medicine for this headache, do not drive yourself home. Arrange for a ride, instead. When you get home, try to sleep. You should feel much better when you wake up. Heat to the back of your neck may relieve neck spasm. Drink only clear liquids or eat a very light diet to avoid nausea/vomiting until symptoms improve. Preventing Future Headaches Identify the sources of stress in your life. These may not be obvious! Learn new ways to handle your stress, such as regular exercise, biofeedback, self-hypnosis and meditation. For more information about this, consult your doctor or go to a local bookstore and review the many books and tapes on this subject. At the first sign of a tension headache, take time out if possible. Remove yourself from the stressful situation, find a quiet comfortable place to sit or lie down and let yourself relax. Heat and deep massage of the tight areas in the neck and shoulders may help reduce muscle spasm. Medicine, such as ibuprofen (Advil or Motrin) or a prescribed muscle relaxant may be helpful at this point. Follow Up with your doctor if the headache is not better within the next 24 hours. If you have frequent headaches you should discuss a treatment plan with your primary care doctor. Ask if you can have medicine to take at home the next time you get a bad headache. This may avoid the need for a visit to the emergency department in the future. Poorly controlled chronic headaches may require a referral to a neurologist (headache specialist). Get Prompt Medical Attention if any of the following occur: Worsening of your head pain or no improvement within 24 hours Repeated vomiting (unable to keep liquids down) Fever of 100.4F (38C) or higher, or as directed by your healthcare provider Stiff neck Extreme drowsiness, confusion or fainting Dizziness, vertigo (dizziness with spinning sensation) Weakness of an arm or leg or one side of the face Difficulty with speech or vision Metoclopramide Hydrochloride Oral tablet What is this medicine? METOCLOPRAMIDE (met oh kloe PRA mide) is used to treat the symptoms of gastroesophageal reflux disease (GERD) like heartburn. It is also used to treat people with slow emptying of the stomach and intestinal tract. How should I use this medicine? Take this medicine by mouth with a glass of water. Follow the directions on the prescription label. Take this medicine on an empty stomach, about 30 minutes before eating. Take your doses at regular intervals. Do not take your medicine more often than directed. Do not stop taking except on the advice of your doctor or health resident care coordinator. A special MedGuide will be given to you by the pharmacist with each prescription and refill. Be sure to read this information carefully each time. Talk to your design cell engineer regarding the use of this medicine in children. Special care may be needed. What side effects may I notice from receiving this medicine? Side effects that you should report to your doctor or health resident care coordinator as soon as possible: allergic reactions like skin rash, itching or hives, swelling of the face, lips, or tongue abnormal production of milk in females breast enlargement in both males and females change in the way you walk difficulty moving, speaking or swallowing drooling, lip smacking, or rapid movements of the tongue excessive sweating fever involuntary or uncontrollable movements of the eyes, head, arms and legs irregular heartbeat or palpitations muscle twitches and spasms unusually weak or tired Side effects that usually do not require medical attention (report to your doctor or health resident care coordinator if they continue or are bothersome): change in sex drive or performance depressed mood diarrhea difficulty sleeping headache menstrual changes restless or nervous What may interact with this medicine? acetaminophen cyclosporine digoxin medicines for blood pressure medicines for diabetes, including insulin medicines for hay fever and other allergies medicines for depression, especially an Monoamine Oxidase Inhibitor (MAOI) medicines for Parkinson's disease, like levodopa medicines for sleep or for pain tetracycline What if I miss a dose? If you miss a dose, take it as soon as you can. If it is almost time for your next dose, take only that dose. Do not take double or extra doses. Where should I keep my medicine? Keep out of the reach of children. Store at room temperature between 20 and 25 degrees C (68 and 77 degrees F). Protect from light. Keep container tightly closed. Throw away any unused medicine after the expiration date. What should I tell my health care provider before I take this medicine? They need to know if you have any of these conditions: breast cancer depression diabetes heart failure high blood pressure kidney disease liver disease Parkinson's disease or a movement disorder pheochromocytoma seizures stomach obstruction, bleeding, or perforation an unusual or allergic reaction to metoclopramide, procainamide, sulfites, other medicines, foods, dyes, or preservatives or trying to get breast-feeding What should I watch for while using this medicine? It may take a few weeks for your stomach condition to start to get better. However, do not take this medicine for longer than 12 weeks. The longer you take this medicine, and the more you take it, the greater your chances are of developing serious side effects. If you are an elderly patient, a female patient, or you have diabetes, you may be at an increased risk for side effects from this medicine. Contact your doctor immediately if you start having movements you cannot control such as lip smacking, rapid movements of the tongue, involuntary or uncontrollable movements of the eyes, head, arms and legs, or muscle twitches and spasms. Patients and their families should watch out for worsening depression or thoughts of suicide. Also watch out for any sudden or severe changes in feelings such as feeling anxious, agitated, panicky, irritable, hostile, aggressive, impulsive, severely restless, overly excited and hyperactive, or not being able to sleep. If this happens, especially at the beginning of treatment or after a change in dose, call your doctor. Do not treat yourself for high fever. Ask your doctor or health resident care coordinator for advice. You may get drowsy or dizzy. Do not drive, use machinery, or do anything that needs mental alertness until you know how this drug affects you. Do not stand or sit up quickly, especially if you are an older patient. This reduces the risk of dizzy or fainting spells. Alcohol can make you more drowsy and dizzy. Avoid alcoholic drinks. You have been given the following additional information: Headache, Tension Metoclopramide Hydrochloride Oral tablet (Electronically signed by Arya Shaw Dr. 10/14/2016 16:37)
--- NOTE | 2016-10-21 10:55 | ED MAR SUMMARY ---
..... Medication Administration Record [facility] [address] [place] [address] Patient: WANDY DOUGHERTY Visit ID: [id number] 40y, F Weight: 79.3 kg Height/Length: 66 in BMI: 28.2 ALLERGIES: Naproxen, Sudafed Start 12:01 10/14/2016 Maame Tam R.N., Stop 13:00 10/14/2016 Maame Tam R.N. Medication Administered: IV NS (SALINE), Dose: IV Fluids over 1 hour(s), Rate: 1000 mL/hr, Dispensed: 1000 mL bag, Site: #1 left AC. Medication Ordered: IV NS : initial bolus none -, then 1000 mL/hr for X1 (NOW). Given 12:03 10/14/2016 Maame Tam R.N. Medication Administered: REGLAN [IVP] (METOCLOPRAMIDE HCL), Dose: 10 mg IVP over 3 minute(s), Site: #1 left AC. Medication Ordered: Reglan IV 10 mg (NOW). Given 13:43 10/14/2016 Maame Tam R.N. Medication Administered: ZOFRAN [IVP] (ONDANSETRON HCL), Dose: 4 mg IVP over 1 minute(s), Site: #1 left AC. Medication Ordered: Zofran IV 4 mg (NOW). Given 13:44 10/14/2016 Maame Tam R.N. Medication Administered: MORPHINE [IVP], Dose: 4 mg IVP over 2 minute(s), Site: #1 left AC. Medication Ordered: Morphine IV 4 mg (HIGH ALERT MEDICATION, NOW). Given 15:24 10/14/2016 An Gutierrez R.N. Medication Administered: ZOFRAN [IVP] (ONDANSETRON HCL), Dose: 4 mg IVP over 2 minute(s), Site: #1 left AC. Medication Ordered: Zofran IV 4 mg (NOW).
--- NOTE | 2016-10-21 10:55 | ED MED RECONCILIATION SUMMARY ---
Patient: WANDY DOUGHERTY Medication Reconciliation Report [facility] VisitID: [id number] [address] [place] [address] 40y, F Registration Date/Time: 10/14/2016 Weight: 79.3 kg Height/Length: 66 in. BMI: 28.2 ALLERGIES: Naproxen, Sudafed The patient's Home Medications are listed below: CONTINUE TAKING THE FOLLOWING MEDICATIONS: Excedrin Migraine Oral Lorazepam Oral 1 mg, for panic attacks Vicodin Oral The source(s) of the original Home Medication information: Not obtained. The following Medications were given to the patient in the Emergency Department: IV NS IV Fluids bolus 0, then 1000 mL/hr, administered: 10/14/2016 12:01:00 PM Reglan [IVP] IVP 10 mg, administered: 10/14/2016 12:03:00 PM Zofran [IVP] IVP 4 mg, administered: 10/14/2016 1:43:00 PM Morphine [IVP] IVP 4 mg, administered: 10/14/2016 1:44:00 PM Zofran [IVP] IVP 4 mg, administered: 10/14/2016 3:24:00 PM The following Medications were prescribed to the patient: Reglan 10 mg tablets: take 1 orally every 6 hours as needed for nausea or vomiting. Dispense twenty (20). No refills. Substitution is permissible. -- Arya Shaw Dr. Baclofen 10 mg: take 1 orally every 8 hours. Dispense twenty (20). No refills. -- Arya Shaw Dr.
== END 2016-10-14 16:45 | disposition home or self-care (01) ==
LOC: ED SRH 11:16
DX: G44.211 Episodic tension-type headache, intractable (principal); Z79.899 Other long term (current) drug therapy; Z88.6 Allergy status to analgesic agent; Z88.8 Allergy status to other drugs, medicaments and biological substances; Z79.82 Long term (current) use of aspirin
CPT/HCPCS: 90004; 90100; 92235; 92530; 93070; 95059